=== PATIENT | female | born 1985 | race Caucasian/White ===

== ENCOUNTER → 2020-11-15 | Outpatient (CLI) | payer SELFPAY ==
[~2020-11-15] MED LIST: ALLERCLEAR10 MG PO; AUROVELA; CEFDINIR300 M4; ESCI10; EUTHYROX25 MC1; IRON18 MG; PRED20; TESTOSTERONE SL; TRAZ50; VIIBRYD1 EAC2 PO; Ventolin/Prove6.7 GM
[2020-11-15 11:40] LABS: Hematocrit 39.7 % (33.0-51.0); Hemoglobin 13.2 g/dL (11.5-16.0); Mean Corpuscular HGB 29.7 pg (26.0-34.0); Mean Corpuscular HGB Conc 33.2 g/dL (31.5-36.5); Mean Corpuscular Volume 89 fL (80-100); RDW Coefficient Variation 13.1 % (11.7-14.2); RDW Standard Deviation 42.7 fL (35.1-46.3); Red Blood Cell Count 4.45 M/mm3 (3.80-5.20); White Blood Cell Count 5.09 K/mm3 (4.00-11.30)
[2020-11-15 11:45] LABS: Calcium, Blood 8.3 mg/dL (8.5-10.1); Creatinine, Blood 1.09 mg/dL (0.40-1.00); Potassium, Blood 3.8 mmol/L (3.5-5.5)
[2020-11-15 12:27] LABS: Mean Platelet Volume 11.9 fL (9.1-12.4); Platelet Count 105 K/mm3 (150-400)
[2020-11-15 12:33] LABS: BAND PERCENT MAN 15 % (0-8); BASOPHILS PERCENT MAN 0 % (0-2); EOSINOPHILS PERCENT MAN 0 % (0-6); LYMPHOCYTES ABSOLUTE MAN 1.32 K/mm3 (0.84-5.20); LYMPHOCYTES PERCENT MAN 26 % (21-46); MONOCYTES ABSOLUTE MAN 0.25 K/mm3 (0.16-1.47); MONOCYTES PERCENT MAN 5 % (4-13); MYELOCYTE ABSOLUTE MAN 0.05 K/mm3 (0.00-0.00); MYELOCYTE PERCENT MAN 1 % (0-0); NEUTROPHILS ABSOLUTE MAN 3.46 K/mm3 (1.96-9.15); SEG NEUTROPHILS PERCENT MAN 53 % (41-73); TOTAL CELLS COUNTED 100
== END | disposition home or self-care (01) ==
LOC: LAB SHORT 11:36 → LAB 11:36
PROVIDERS: Family Medicine
DX: U07.1 COVID-19 (principal)
CPT/HCPCS: 80048; 85025

== ENCOUNTER 2020-11-16 19:53 | Inpatient (IN) | payer BC ==
[~2020-11-16] VITALS: Ht 162.6 cm; Wt 127.0 kg
[2020-11-16] MEDS ORDERED: Ventolin/Prove6.7 GM INH (20:25)
[2020-11-16] MEDS ORDERED: CEFDINIR300 M4 (20:26)
[2020-11-16] MEDS ORDERED: PRED20 (20:26)
[2020-11-16] MEDS ORDERED: TRAZ50 PO (20:29)
[2020-11-16] MEDS ORDERED: EUTHYROX25 MC1 PO (20:29)
[2020-11-16] MEDS ORDERED: AUROVELA PO (20:30)
[2020-11-16] MEDS ORDERED: ESCI10 (20:31)
[2020-11-16] MEDS ORDERED: VIIBRYD1 EAC2 PO (20:31)
[2020-11-16] MEDS ORDERED: IRON18 MG (20:32)
[2020-11-16] MEDS ORDERED: ALLERCLEAR10 MG PO (20:33)
[2020-11-16 21:47] LABS: BASOPHILS ABSOLUTE AUTO 0.02 K/mm3 (0.00-0.23); BASOPHILS PERCENT AUTO 0 % (0-2); EOSINOPHILS ABSOLUTE AUTO 0.01 K/mm3 (0.00-0.68); EOSINOPHILS PERCENT AUTO 0 % (0-6); Hematocrit 41.2 % (33.0-51.0); Hemoglobin 13.4 g/dL (11.5-16.0); IMMATURE GRAN ABSOLUTE AUTO 0.24 K/mm3 (0.00-0.10); IMMATURE GRAN PERCENT AUTO 3 % (0-1); LYMPHOCYTES ABSOLUTE AUTO 0.98 K/mm3 (0.84-5.20); LYMPHOCYTES PERCENT AUTO 12 % (21-46); MONOCYTES ABSOLUTE AUTO 0.33 K/mm3 (0.16-1.47); MONOCYTES PERCENT AUTO 4 % (4-13); Mean Corpuscular HGB 29.4 pg (26.0-34.0); Mean Corpuscular HGB Conc 32.5 g/dL (31.5-36.5); Mean Corpuscular Volume 90 fL (80-100); NEUTROPHILS ABSOLUTE AUTO 6.47 K/mm3 (1.96-9.15); NEUTROPHILS PERCENT AUTO 80 % (41-73); Platelet Count 161 K/mm3 (150-400); Red Blood Cell Count 4.56 M/mm3 (3.80-5.20); White Blood Cell Count 8.05 K/mm3 (4.00-11.30)
[2020-11-16 22:05] LABS: Alanine Aminotransfer (ALT/SGP 209 U/L (12-78); Albumin, Blood 3.3 g/dL (3.4-5.0); Alk Phos 86 U/L (50-136); Anion Gap 6 mmol/L (6-16); Aspartate Aminotrans (AST/SGOT 120 U/L (12-37); Bilirubin, Total 0.4 mg/dL (0.1-1.0); Blood Urea Nitrogen 8 mg/dL (8-24); Bun/Creatinine Ratio 14.2 (12.0-20.0); CO2, Blood 26 mmol/L (21-32); Calcium, Blood 8.6 mg/dL (8.5-10.1); Chloride, Blood 107 mmol/L (98-108); Creatinine, Blood 0.56 mg/dL (0.40-1.00); Globulin, Blood 3.4 g/dL (2.2-4.0); Glomerular Filtration Rate >60 (60-); Glucose, Blood 174 mg/dL (70-99); Potassium, Blood 4.6 mmol/L (3.5-5.5); Sodium, Blood 139 mmol/L (136-145); Total Protein, Blood 6.7 g/dL (6.4-8.2)
[2020-11-17 06:12] LABS: BASOPHILS ABSOLUTE AUTO 0.02 K/mm3 (0.00-0.23); BASOPHILS PERCENT AUTO 0 % (0-2); EOSINOPHILS PERCENT AUTO 0 % (0-6); Hematocrit 40.6 % (33.0-51.0); IMMATURE GRAN ABSOLUTE AUTO 0.33 K/mm3 (0.00-0.10); IMMATURE GRAN PERCENT AUTO 4 % (0-1); LYMPHOCYTES ABSOLUTE AUTO 1.24 K/mm3 (0.84-5.20); LYMPHOCYTES PERCENT AUTO 13 % (21-46); MONOCYTES ABSOLUTE AUTO 0.45 K/mm3 (0.16-1.47); MONOCYTES PERCENT AUTO 5 % (4-13); Mean Corpuscular HGB 28.8 pg (26.0-34.0); Mean Corpuscular Volume 90 fL (80-100); Mean Platelet Volume 11.8 fL (9.1-12.4); NEUTROPHILS ABSOLUTE AUTO 7.35 K/mm3 (1.96-9.15); NEUTROPHILS PERCENT AUTO 78 % (41-73); Platelet Count 170 K/mm3 (150-400); RDW Coefficient Variation 13.3 % (11.7-14.2); Red Blood Cell Count 4.52 M/mm3 (3.80-5.20); White Blood Cell Count 9.39 K/mm3 (4.00-11.30)
--- NOTE | 2020-11-17 06:13 | NUR ---
COMPUTER FORENSIC EXAMINER SUMMARY PT NEW ADMIT NOC SHIFT. A/O X4. MEDICATED FOR HEADACHE PER EMAR. MEDICATED FOR SLEEP PER EMAR. PT ARRIVED TO UNIT WITH 12L VIA OXYMYZER AND CONTINUES TO BE ON 12L VIA OXYMIZER SATTING IN THE LOW 90'S. ABLE TO MAKE NEEDS KNOWN. CALL LIGHT WITHIN REACH, WILL CONTINUE TO MONITOR.
[2020-11-17 06:33] LABS: Alanine Aminotransfer (ALT/SGP 186 U/L (12-78); Albumin, Blood 3.2 g/dL (3.4-5.0); Alk Phos 84 U/L (50-136); Anion Gap 8 mmol/L (6-16); Aspartate Aminotrans (AST/SGOT 102 U/L (12-37); Bilirubin, Total 0.4 mg/dL (0.1-1.0); Blood Urea Nitrogen 10 mg/dL (8-24); Bun/Creatinine Ratio 15.7 (12.0-20.0); CO2, Blood 26 mmol/L (21-32); Calcium, Blood 8.1 mg/dL (8.5-10.1); Chloride, Blood 107 mmol/L (98-108); Creatinine, Blood 0.64 mg/dL (0.40-1.00); Globulin, Blood 3.2 g/dL (2.2-4.0); Glomerular Filtration Rate >60 (60-); Glucose, Blood 163 mg/dL (70-99); Potassium, Blood 4.2 mmol/L (3.5-5.5); Sodium, Blood 141 mmol/L (136-145); Total Protein, Blood 6.4 g/dL (6.4-8.2)
[2020-11-17] MEDS ORDERED: TESTOSTERONE SL (08:57)
--- NOTE | 2020-11-17 18:40 | NUR ---
SHIFT SUMMARY PT NOW ON 15 L/MIN OXYMIZER SATING IN THE 90'S. PT REPORTS MORE RELIEF WHEN LYING IN PRONE POSITION. DIARRHEA CONTINUES, IMODIUM PROVIDED PER ORDERS. PAIN MEDS GIVEN PRN FOR HEADACHE. UPDATED, WOULD LIKE A PHONE CALL FROM HOSPITALIST FOR UPDATE. NUMBER IS . PT CALLS APPROPRAITELY, CALL LIGHT WITHIN REACH.
--- NOTE | 2020-11-17 19:20 | NUR ---
ASSUMED CARE RECEIVED REPORT FROM TAMARA ESPINOZA. PT RESTING, IN NAD. NO ACUTE NEEDS ASSESSED AT THIS TIME. CALL LIGHT, POSSESSIONS IN REACH, BED IN LOW AND LOCKED POSITION. OLI.
[2020-11-18 06:13] LABS: BASOPHILS ABSOLUTE AUTO 0.04 K/mm3 (0.00-0.23); BASOPHILS PERCENT AUTO 1 % (0-2); EOSINOPHILS ABSOLUTE AUTO 0.01 K/mm3 (0.00-0.68); EOSINOPHILS PERCENT AUTO 0 % (0-6); Hematocrit 43.3 % (33.0-51.0); Hemoglobin 13.6 g/dL (11.5-16.0); IMMATURE GRAN ABSOLUTE AUTO 0.32 K/mm3 (0.00-0.10); IMMATURE GRAN PERCENT AUTO 4 % (0-1); LYMPHOCYTES ABSOLUTE AUTO 2.13 K/mm3 (0.84-5.20); LYMPHOCYTES PERCENT AUTO 26 % (21-46); MONOCYTES ABSOLUTE AUTO 0.41 K/mm3 (0.16-1.47); MONOCYTES PERCENT AUTO 5 % (4-13); Mean Corpuscular HGB 28.9 pg (26.0-34.0); Mean Corpuscular HGB Conc 31.4 g/dL (31.5-36.5); Mean Corpuscular Volume 92 fL (80-100); Mean Platelet Volume 11.6 fL (9.1-12.4); NEUTROPHILS ABSOLUTE AUTO 5.23 K/mm3 (1.96-9.15); NEUTROPHILS PERCENT AUTO 64 % (41-73); Platelet Count 206 K/mm3 (150-400); RDW Coefficient Variation 13.5 % (11.7-14.2); RDW Standard Deviation 46.5 fL (35.1-46.3); Red Blood Cell Count 4.71 M/mm3 (3.80-5.20); White Blood Cell Count 8.14 K/mm3 (4.00-11.30)
[2020-11-18 06:51] LABS: Alanine Aminotransfer (ALT/SGP 140 U/L (12-78); Albumin, Blood 3.1 g/dL (3.4-5.0); Albumin/Globulin Ratio 0.9 (0.8-1.8); Alk Phos 81 U/L (50-136); Anion Gap 6 mmol/L (6-16); Aspartate Aminotrans (AST/SGOT 83 U/L (12-37); Bilirubin, Total 0.5 mg/dL (0.1-1.0); Blood Urea Nitrogen 14 mg/dL (8-24); Bun/Creatinine Ratio 18.7 (12.0-20.0); CO2, Blood 29 mmol/L (21-32); Calcium, Blood 8.3 mg/dL (8.5-10.1); Chloride, Blood 104 mmol/L (98-108); Creatinine, Blood 0.75 mg/dL (0.40-1.00); Globulin, Blood 3.6 g/dL (2.2-4.0); Glomerular Filtration Rate >60 (60-); Glucose, Blood 98 mg/dL (70-99); Magnesium, Blood 2.1 mg/dL (1.6-2.4); Phosphorus, Blood 3.2 mg/dL (2.5-4.9); Sodium, Blood 139 mmol/L (136-145); Total Protein, Blood 6.7 g/dL (6.4-8.2)
[2020-11-18 07:02] LABS: International Normalized Ratio 0.94; Prothrombin Time Results 10.2 Sec (9.7-11.5)
--- NOTE | 2020-11-18 07:44 | NUR ---
SHIFT SUMMARY PT RESTING, IN NAD. VS REVIEWED, WNL. ON 15L/OXYMIZER, O2 SATS IN HIGH 80'S- LOW 90'S. APPEARED TO SLEEP ON AND OFF T/O NIGHT. SELF-PRONES, TOLERATES WELL. PAIN MANAGED WITH MEDS PER EMAR. NO ACUTE NEEDS ASSESSED AT THIS TIME. CALL LIGHT, POSSESSIONS IN REACH, BED IN LOCKED POSITION. REPORT GIVEN TO TAMARA MARCUM.
--- NOTE | 2020-11-18 08:00 | NUR ---
PT OXYIMIZER CHANGED TO HI FLOW CANULA AND NRB AT 15L
--- NOTE | 2020-11-18 18:46 | NUR ---
PT CHANGED TO HI FLOW CANULA AND NRB MASK TO MAINTAIN SATS. SHE DOES SELF PRONE. PT REPORTS ANXIETY THIS AFTERNOON, 1 MG PO ATIVAN GIVEN AT [id number]. PT THEN REPORTS PAIN TO HEAD AND BACK, 1 PO NORCO GIVEN AT 181. WILL MONITOR FOR EFFECTIVENESS. WILL CONTINUE TO MONITOR AND REPORT TO ONCOMING RN
--- NOTE | 2020-11-18 19:15 | NUR ---
ASSUMED CARE RECEIVED REPORT FROM TAMARA MARCUM. PT RESTING, IN NAD. NO ACUTE NEEDS ASSESSED. CALL LIGHT, POSSESSIONS IN REACH.
--- NOTE | 2020-11-18 22:40 | NUR ---
VERBAL CONSENT OBTAINED FROM PT TO UPDATE MOTHER ON PT CONDITION. SPOKE TO PT'S MOTHER REGARDING PT'S CURRENT OXYGENATION STATUS, MEDICATIONS AND PLAN OF CARE. ALLOWED FOR QUESTIONS, ADDRESSED CONCERNS AND PROVIDED REASSURANCE. FAMILY TO CALL FOR UPDATE TOMORROW MORNING.
--- NOTE | 2020-11-19 06:13 | NUR ---
SHIFT SUMMARY PT RESTING, IN NAD. VS REVIEWED,WNL; O2 SATS 93-95% ON AIRVO WITH NRB. PT SELF-PRONING AND TOLERATING WELL. APPEARED TO SLEEP WELL OVERNIGHT. NO OTHER ACUTE CONCERNS TO REPORT OVERNIGHT. NO ACUTE NEEDS ASSESSED AT THIS TIME. CALL LIGHT, POSSESSIONS IN REACH, BED IN LOW AND LOCKED POSITION. WILL REPORT OFF TO ONCOMING RN.
--- NOTE | 2020-11-19 19:10 | NUR ---
ASSUMED CARE RECEIVED REPORT FROM TAMARA MARCUM. PT RESTING, IN NAD; O2 SATS STABLE. NO ACUTE NEEDS ASSESSED AT THIS TIME. CALL LIGHT, POSSESSIONS IN REACH. WCTM.
[2020-11-20 05:19] LABS: Hematocrit 37.9 % (33.0-51.0); Hemoglobin 12.2 g/dL (11.5-16.0); Mean Corpuscular HGB 28.6 pg (26.0-34.0); Mean Corpuscular HGB Conc 32.2 g/dL (31.5-36.5); Mean Corpuscular Volume 89 fL (80-100); Mean Platelet Volume 10.9 fL (9.1-12.4); Platelet Count 226 K/mm3 (150-400); RDW Coefficient Variation 12.9 % (11.7-14.2); Red Blood Cell Count 4.27 M/mm3 (3.80-5.20); White Blood Cell Count 7.17 K/mm3 (4.00-11.30)
[2020-11-20 05:46] LABS: Anion Gap 8 mmol/L (6-16); Blood Urea Nitrogen 11 mg/dL (8-24); Bun/Creatinine Ratio 18.9 (12.0-20.0); CO2, Blood 25 mmol/L (21-32); Calcium, Blood 7.8 mg/dL (8.5-10.1); Chloride, Blood 107 mmol/L (98-108); Creatinine, Blood 0.58 mg/dL (0.40-1.00); Glomerular Filtration Rate >60 (60-); Glucose, Blood 126 mg/dL (70-99); Potassium, Blood 3.8 mmol/L (3.5-5.5); Sodium, Blood 140 mmol/L (136-145)
[2020-11-20 05:56] LABS: BAND PERCENT MAN 5 % (0-8); BASOPHILS PERCENT MAN 0 % (0-2); EOSINOPHILS PERCENT MAN 0 % (0-6); LYMPHOCYTES ABSOLUTE MAN 1.14 K/mm3 (0.84-5.20); LYMPHOCYTES PERCENT MAN 16 % (21-46); METAMYELOCYTE ABSOLUTE MAN 0.07 K/mm3 (0.00-0.00); METAMYELOCYTE PERCENT MAN 1 % (0-0); MONOCYTES ABSOLUTE MAN 0.28 K/mm3 (0.16-1.47); MONOCYTES PERCENT MAN 4 % (4-13); NEUTROPHILS ABSOLUTE MAN 5.66 K/mm3 (1.96-9.15); SEG NEUTROPHILS PERCENT MAN 74 % (41-73); TOTAL CELLS COUNTED 100
--- NOTE | 2020-11-20 06:40 | NUR ---
SHIFT SUMMARY PT ASLEEP IN PRONE POSITION, IN NAD. NO ACUTE CONCERNS TO REPORT OVERNIGHT. O2 SATS 92 OR ABOVE ON AIRVO + NRB; HAS BEEN HIGH 97% T/O SHIFT. NO ACUTE NEEDS ASSESSED AT THIS TIME. CALL LIGHT, POSSESSIONS IN REACH, BED IN LOWEST POSITION. PT SELF PRONES WELL. WILL REPORT OFF TO ONCOMING RN.
--- NOTE | 2020-11-20 12:48 | NUR ---
TP PLEASANT THIS AM. LIES PRONE REGULARLY. LUNGS LITE CRACKLES T/O SOB WITH ANY EXERTION. ON AIRVE 50L 85% FIO2. RESP UNLABORED. PT A/O. DENIES PAIN AT THIS TIME. BED IN LOW POSITION, CALL LITE IN REACH, CALLS AP[PROP
--- NOTE | 2020-11-20 13:52 | NUR ---
UPDATED MOM WITH CURRENT INFO. PT ON AIRVO 50L 85% FIO2 PLUS NONREBREATHER, PT LIES PRONE AND THIS HELPS. SHE NOT UNDERSTANDING PT STATUS. EXPLAINED APPERAS HOLDING OWN NOW, BUT IS QUITE SICK.
--- NOTE | 2020-11-20 18:39 | NUR ---
PT HAS BEEN PRONE MUCH OF DAY. NO C/O PAIN. AIRVO AT 50L 85% FIO2. WITH NONREBREATHER BULK CLERK. PRESENTS TIRED. NO NEW CONCERNS NOTED. EATING MINIMAL. ENCOURAGED ENSUR. BED IN LOW P OSITION, CALL LITE IN REACH, CALLS APPROP
--- NOTE | 2020-11-21 04:53 | NUR ---
SHIFT SUMMARY PT IS A FULL CODE ADMITTED FOR HYPOXIA D/T COVID 19+. THE PLAN FOR THIS PT IS TO DECREASE 02 DEMANDS AND CONTINUE ANTIBIOTICS. NO DISTRESS NOTED. PT RESTING IN BED. VS STABLE.
[2020-11-21 05:13] LABS: Hematocrit 37.9 % (33.0-51.0); Hemoglobin 12.6 g/dL (11.5-16.0); Mean Corpuscular HGB 29.1 pg (26.0-34.0); Mean Corpuscular HGB Conc 33.2 g/dL (31.5-36.5); Mean Corpuscular Volume 88 fL (80-100); Mean Platelet Volume 11.8 fL (9.1-12.4); Platelet Count 256 K/mm3 (150-400); RDW Coefficient Variation 12.5 % (11.7-14.2); RDW Standard Deviation 40.3 fL (35.1-46.3); Red Blood Cell Count 4.33 M/mm3 (3.80-5.20); White Blood Cell Count 7.41 K/mm3 (4.00-11.30)
[2020-11-21 05:42] LABS: Alanine Aminotransfer (ALT/SGP 121 U/L (12-78); Albumin, Blood 2.6 g/dL (3.4-5.0); Albumin/Globulin Ratio 0.8 (0.8-1.8); Alk Phos 79 U/L (50-136); Anion Gap 7 mmol/L (6-16); Aspartate Aminotrans (AST/SGOT 80 U/L (12-37); Bilirubin, Total 0.7 mg/dL (0.1-1.0); Blood Urea Nitrogen 13 mg/dL (8-24); Bun/Creatinine Ratio 25.5 (12.0-20.0); CO2, Blood 26 mmol/L (21-32); Calcium, Blood 8.1 mg/dL (8.5-10.1); Chloride, Blood 106 mmol/L (98-108); Creatinine, Blood 0.51 mg/dL (0.40-1.00); Globulin, Blood 3.4 g/dL (2.2-4.0); Glomerular Filtration Rate >60 (60-); Glucose, Blood 146 mg/dL (70-99); Potassium, Blood 3.8 mmol/L (3.5-5.5); Sodium, Blood 139 mmol/L (136-145)
[2020-11-21 06:04] LABS: BAND PERCENT MAN 5 % (0-8); BASOPHILS PERCENT MAN 0 % (0-2); EOSINOPHILS PERCENT MAN 0 % (0-6); LYMPHOCYTES ABSOLUTE MAN 1.18 K/mm3 (0.84-5.20); LYMPHOCYTES PERCENT MAN 16 % (21-46); METAMYELOCYTE ABSOLUTE MAN 0.07 K/mm3 (0.00-0.00); METAMYELOCYTE PERCENT MAN 1 % (0-0); MONOCYTES ABSOLUTE MAN 0.14 K/mm3 (0.16-1.47); MONOCYTES PERCENT MAN 2 % (4-13); MYELOCYTE ABSOLUTE MAN 0.29 K/mm3 (0.00-0.00); MYELOCYTE PERCENT MAN 4 % (0-0); SEG NEUTROPHILS PERCENT MAN 72 % (41-73); TOTAL CELLS COUNTED 100
--- NOTE | 2020-11-21 09:44 | NUR ---
PER DR MORAN, CHANGE LOVENOX TO 40MG BID STATR NOW.
--- NOTE | 2020-11-21 13:16 | NUR ---
PT QUITE PLEASANT TODAY. IS PRESENTLY PRONE ON BED. USING AIRVE AT 50L 85% FIIO2. PLUS THE NON-REBREATHER. PT ABLE TO SIT UP AND TAKE PILLS 1-2 AT A TIME. REPLACING NON-REBEATHER BETWEEN PILLS AND SWALLOWING. DID DESAT DOWN TO MID 80'S, WHICH IS SOME BETTER THAN YEST. DID GO TO BSC AND VOID, AGAIN SOME SMALL IMPROVEMENT IN SATS. NOSE BLEEDS, DRIED BLOOD ON FACE, AND ON NON-REBREAATHER. DISCUSSED WITH DR MORAN. HE CHANGED LOVENOX TO LOWER DOSE. CLEANED PT FACE AND MASK. NO NEW CONCERNS NOTED. BED IN LOW POSITION, CAALL LITE IN REACH, CALLS APPROP
[2020-11-22 05:28] LABS: BASOPHILS ABSOLUTE AUTO 0.08 K/mm3 (0.00-0.23); BASOPHILS PERCENT AUTO 1 % (0-2); Hematocrit 40.1 % (33.0-51.0); Hemoglobin 13.3 g/dL (11.5-16.0); LYMPHOCYTES ABSOLUTE AUTO 1.31 K/mm3 (0.84-5.20); LYMPHOCYTES PERCENT AUTO 16 % (21-46); MONOCYTES ABSOLUTE AUTO 0.67 K/mm3 (0.16-1.47); MONOCYTES PERCENT AUTO 8 % (4-13); Mean Corpuscular HGB Conc 33.2 g/dL (31.5-36.5); Mean Corpuscular Volume 88 fL (80-100); Mean Platelet Volume 11.7 fL (9.1-12.4); Platelet Count 269 K/mm3 (150-400); RDW Coefficient Variation 12.6 % (11.7-14.2); RDW Standard Deviation 40.6 fL (35.1-46.3); Red Blood Cell Count 4.58 M/mm3 (3.80-5.20); White Blood Cell Count 8.47 K/mm3 (4.00-11.30)
--- NOTE | 2020-11-22 05:28 | NUR ---
SHIFT SUMMARY PT IS A FULL CODE ADMITTED FOR COVID 19+. THE PLAN FOR THIS PT IS TO CONTINUE IN STEROIDS AND TO DECREASE 02 DEMANDS. PT IS CURRENTLY ON AIRVO 50L 85% WITH NONREBREATHER @ 15L. PT SATS HAS BEEN IN THE 90S THROUGHOUT SHIFT. SATS WILL DROP WITH ACTIVITY. NO SIGNIFICANT CHANGES THROUGHTOUT THIS SHIFT.
[2020-11-22 05:29] LABS: EOSINOPHILS PERCENT AUTO 0 % (0-6); IMMATURE GRAN PERCENT AUTO 12 % (0-1); NEUTROPHILS ABSOLUTE AUTO 5.41 K/mm3 (1.96-9.15); NEUTROPHILS PERCENT AUTO 64 % (41-73)
[2020-11-22 05:54] LABS: Alanine Aminotransfer (ALT/SGP 108 U/L (12-78); Albumin, Blood 2.7 g/dL (3.4-5.0); Albumin/Globulin Ratio 0.7 (0.8-1.8); Alk Phos 79 U/L (50-136); Anion Gap 6 mmol/L (6-16); Aspartate Aminotrans (AST/SGOT 51 U/L (12-37); Bilirubin, Total 0.6 mg/dL (0.1-1.0); Blood Urea Nitrogen 15 mg/dL (8-24); CO2, Blood 27 mmol/L (21-32); Calcium, Blood 8.8 mg/dL (8.5-10.1); Chloride, Blood 105 mmol/L (98-108); Creatinine, Blood 0.54 mg/dL (0.40-1.00); Globulin, Blood 3.7 g/dL (2.2-4.0); Glomerular Filtration Rate >60 (60-); Glucose, Blood 152 mg/dL (70-99); Potassium, Blood 3.9 mmol/L (3.5-5.5); Sodium, Blood 138 mmol/L (136-145); Total Protein, Blood 6.4 g/dL (6.4-8.2)
[2020-11-22 06:09] LABS: BAND PERCENT MAN 4 % (0-8); BASOPHILS PERCENT MAN 0 % (0-2); EOSINOPHILS PERCENT MAN 0 % (0-6); LYMPHOCYTES ABSOLUTE MAN 1.01 K/mm3 (0.84-5.20); LYMPHOCYTES PERCENT MAN 12 % (21-46); METAMYELOCYTE PERCENT MAN 6 % (0-0); MONOCYTES ABSOLUTE MAN 0.84 K/mm3 (0.16-1.47); MONOCYTES PERCENT MAN 10 % (4-13); NEUTROPHILS ABSOLUTE MAN 6.09 K/mm3 (1.96-9.15); SEG NEUTROPHILS PERCENT MAN 68 % (41-73); TOTAL CELLS COUNTED 100
--- NOTE | 2020-11-22 08:27 | NUR ---
PATIENT PRONING, MAKES NEEDS KNOWN, WOKE EASILY TO VOICE AND TOUCH, SITTING AT EDGE OF BED FOR MEDICATION, CALL LIGHT WITH IN REACH, WCTM
--- NOTE | 2020-11-22 08:28 | NUR ---
PATIENT EASILY DESATS TO 70%'S WHEN TAKING PILLS RECOVERS QUICKLY TO 91%, NONREBREATHER 100%, AND AEROVO
--- NOTE | 2020-11-22 11:37 | NUR ---
REPORTED TO PATIENTS MOTHER ANDREE, PATIENT MAKES NEEDS KNOWN, REPOSITIONS SELF IN BED, PRONES INDEPEDENTLY, WCTM
--- NOTE | 2020-11-22 12:40 | NUR ---
PATIENT OOB TO BSC, STEADY SLOW GAIT, WCTM
--- NOTE | 2020-11-22 14:03 | NUR ---
Patient is sitting on EOB and alert. Patient talks about the struggles of working through the syptoms of the COVID virus both physically and emotionally (patient has felt quite anxious at times). She tells me about her 's hernandez with COVID and how hard it is to be seperated from family. She explains about her [employer] jalil, her solid support system and her strong desire to work through to total health. I provide therapeutic listening, pastoral diet counselor and prayer. Patient responds well and displays evidence of increased peace. I will continue to remain available to patient and family.
--- NOTE | 2020-11-22 18:33 | NUR ---
MAKES NEEDS KNOWN, CALL LIGHT WITH IN REACH, PATIENT REPORTS FEELING BETTER TODAY, REPOSITIONS SELF, LS DIMINISHED, 15 L NONREBREATHER, AIRVO 50L 85%, POOR APPETITE, PATIENT TRYING TO EAT FOOD NOW, PLEASANT TO CARE, WCTM
--- NOTE | 2020-11-23 04:40 | NUR ---
SHIFT SUMMARY FULL CODE PT ADMITTED FOR COVID 19+. THE PLAN FOR THIS PT IS TO DECREASE 02 DEMANDS AND CONTINUE IV STERIODS. PT RESTING AT THUS TIME. NO DISTRESS NOTED. PT REMAINS ON AIRVO. SATS RANGES FROM 90-97 THROUGHOUT SHIFT. PT WILL DESAT MTO 85 WITH ACTIVITY. CALL LIGHT WITHIN REACH.
[2020-11-23 05:48] LABS: Hematocrit 41.5 % (33.0-51.0); Hemoglobin 13.7 g/dL (11.5-16.0); Mean Corpuscular Volume 88 fL (80-100); Mean Platelet Volume 11.7 fL (9.1-12.4); Platelet Count 273 K/mm3 (150-400); RDW Coefficient Variation 12.7 % (11.7-14.2); RDW Standard Deviation 40.6 fL (35.1-46.3); Red Blood Cell Count 4.72 M/mm3 (3.80-5.20); White Blood Cell Count 10.53 K/mm3 (4.00-11.30)
[2020-11-23 06:16] LABS: BAND PERCENT MAN 11 % (0-8); BASOPHILS PERCENT MAN 0 % (0-2); EOSINOPHILS PERCENT MAN 0 % (0-6); LYMPHOCYTES % ATYPICAL MANUAL 1 % (0-0); LYMPHOCYTES ABSOLUTE MAN 1.47 K/mm3 (0.84-5.20); LYMPHOCYTES PERCENT MAN 13 % (21-46); MONOCYTES ABSOLUTE MAN 0.31 K/mm3 (0.16-1.47); MONOCYTES PERCENT MAN 3 % (4-13); MYELOCYTE ABSOLUTE MAN 0.21 K/mm3 (0.00-0.00); MYELOCYTE PERCENT MAN 2 % (0-0); NEUTROPHILS ABSOLUTE MAN 8.52 K/mm3 (1.96-9.15); SEG NEUTROPHILS PERCENT MAN 70 % (41-73); TOTAL CELLS COUNTED 100
[2020-11-23 06:48] LABS: Alanine Aminotransfer (ALT/SGP 103 U/L (12-78); Albumin, Blood 2.8 g/dL (3.4-5.0); Albumin/Globulin Ratio 0.8 (0.8-1.8); Alk Phos 77 U/L (50-136); Anion Gap 5 mmol/L (6-16); Aspartate Aminotrans (AST/SGOT 57 U/L (12-37); Bilirubin, Total 0.5 mg/dL (0.1-1.0); Blood Urea Nitrogen 15 mg/dL (8-24); Bun/Creatinine Ratio 24.5 (12.0-20.0); CO2, Blood 29 mmol/L (21-32); Calcium, Blood 8.5 mg/dL (8.5-10.1); Chloride, Blood 105 mmol/L (98-108); Creatinine, Blood 0.61 mg/dL (0.40-1.00); Globulin, Blood 3.5 g/dL (2.2-4.0); Glomerular Filtration Rate >60 (60-); Glucose, Blood 166 mg/dL (70-99); Potassium, Blood 4.3 mmol/L (3.5-5.5); Sodium, Blood 139 mmol/L (136-145); Total Protein, Blood 6.3 g/dL (6.4-8.2)
--- NOTE | 2020-11-23 18:58 | NUR ---
MAKES NEEDS KNOWN, CALL LIGHT WITH IN REACH, NO CHANGES, IMPROVED O2 SATS, ATE DINNER TRAY AIRVO MASL ON. 92%, INSPIRATORY WHEEZES THROUGH OUT LUNG FIELD, DENIES NAUSEA OR CP, WCTM
--- NOTE | 2020-11-24 04:15 | NUR ---
SHIFT SUMMARY PT ADMITTED FOR COVID 19+. ON AIRVO SATTING 90-97% THROUGHOUT SHIFT. NO DISTRESS NOTED. VS STABLE. NO SIGNIFICANT CAHNGES DURING THIS SHIFT. PT ABLE TO MAKE NEEDS KNOWN. AAOX3, CALL LIGHT WITHIN REACH.
[2020-11-24 05:28] LABS: Hematocrit 40.6 % (33.0-51.0); Hemoglobin 13.3 g/dL (11.5-16.0); Mean Corpuscular HGB 28.8 pg (26.0-34.0); Mean Corpuscular HGB Conc 32.8 g/dL (31.5-36.5); Mean Corpuscular Volume 88 fL (80-100); Mean Platelet Volume 11.8 fL (9.1-12.4); Platelet Count 290 K/mm3 (150-400); RDW Coefficient Variation 12.7 % (11.7-14.2); RDW Standard Deviation 40.8 fL (35.1-46.3); Red Blood Cell Count 4.62 M/mm3 (3.80-5.20); White Blood Cell Count 12.69 K/mm3 (4.00-11.30)
[2020-11-24 05:58] LABS: Alanine Aminotransfer (ALT/SGP 88 U/L (12-78); Albumin, Blood 2.8 g/dL (3.4-5.0); Albumin/Globulin Ratio 0.8 (0.8-1.8); Alk Phos 79 U/L (50-136); Anion Gap 4 mmol/L (6-16); Aspartate Aminotrans (AST/SGOT 30 U/L (12-37); Bilirubin, Total 0.7 mg/dL (0.1-1.0); Blood Urea Nitrogen 15 mg/dL (8-24); Bun/Creatinine Ratio 23.8 (12.0-20.0); CO2, Blood 29 mmol/L (21-32); Calcium, Blood 8.9 mg/dL (8.5-10.1); Chloride, Blood 105 mmol/L (98-108); Creatinine, Blood 0.63 mg/dL (0.40-1.00); Globulin, Blood 3.6 g/dL (2.2-4.0); Glomerular Filtration Rate >60 (60-); Glucose, Blood 168 mg/dL (70-99); Sodium, Blood 138 mmol/L (136-145); Total Protein, Blood 6.4 g/dL (6.4-8.2)
[2020-11-24 06:13] LABS: BAND PERCENT MAN 7 % (0-8); BASOPHILS PERCENT MAN 0 % (0-2); EOSINOPHILS PERCENT MAN 0 % (0-6); LYMPHOCYTES ABSOLUTE MAN 0.63 K/mm3 (0.84-5.20); LYMPHOCYTES PERCENT MAN 5 % (21-46); METAMYELOCYTE ABSOLUTE MAN 0.12 K/mm3 (0.00-0.00); METAMYELOCYTE PERCENT MAN 1 % (0-0); MONOCYTES ABSOLUTE MAN 0.12 K/mm3 (0.16-1.47); MONOCYTES PERCENT MAN 1 % (4-13); MYELOCYTE PERCENT MAN 4 % (0-0); NEUTROPHILS ABSOLUTE MAN 11.29 K/mm3 (1.96-9.15); SEG NEUTROPHILS PERCENT MAN 82 % (41-73); TOTAL CELLS COUNTED 100
[2020-11-24 15:50] LABS: Source, Urine Clean Catch
[2020-11-24 15:57] LABS: Appearance, Urine Clear (Clear); Bilirubin, Urine Neg (Neg); Blood, Urine Neg (Neg); Color, Urine Yellow (P-Yellow); Glucose Qualitative, Urine Neg (Neg); Ketones, Urine Neg (Neg); Leukocyte Esterase, Urine Neg (Neg); Nitrite, Urine Neg (Neg); Protein, Urine Neg (Neg); Urobilinogen, Urine NORM (Normal); pH, Urine 6.5 (5.0-8.0)
--- NOTE | 2020-11-25 04:33 | NUR ---
SHIFT SUMMARY- PT. A&O, PLEASANT AND COOPERATIVE [facility]. ON AIRVO 45L @85% SATS MAINTAINED @95%. HAD NO COMPLAINTS OF PAIN OR DISCOMFORT T/O THE NIGHT. SLEPT T/O THE NIGHT, NO APPARENT DISTRESS NOTED. CALL LIGHT WITHIN REACH AND SIDE RAILS UPX2. WILL CONT TO MONITOR.
[2020-11-25 14:07] LABS: Hematocrit 40.6 % (33.0-51.0); Hemoglobin 13.3 g/dL (11.5-16.0); Mean Corpuscular HGB 29.1 pg (26.0-34.0); Mean Corpuscular HGB Conc 32.8 g/dL (31.5-36.5); Mean Corpuscular Volume 89 fL (80-100); Mean Platelet Volume 11.7 fL (9.1-12.4); Platelet Count 249 K/mm3 (150-400); RDW Coefficient Variation 12.8 % (11.7-14.2); RDW Standard Deviation 41.6 fL (35.1-46.3); Red Blood Cell Count 4.57 M/mm3 (3.80-5.20); White Blood Cell Count 13.05 K/mm3 (4.00-11.30)
[2020-11-25 14:19] LABS: Anion Gap 3 mmol/L (6-16); Blood Urea Nitrogen 12 mg/dL (8-24); Bun/Creatinine Ratio 21.1 (12.0-20.0); CO2, Blood 29 mmol/L (21-32); Calcium, Blood 9.1 mg/dL (8.5-10.1); Chloride, Blood 108 mmol/L (98-108); Creatinine, Blood 0.57 mg/dL (0.40-1.00); Glomerular Filtration Rate >60 (60-); Glucose, Blood 154 mg/dL (70-99); Potassium, Blood 4.3 mmol/L (3.5-5.5); Sodium, Blood 140 mmol/L (136-145)
[2020-11-25 14:45] LABS: BAND PERCENT MAN 2 % (0-8); BASOPHILS PERCENT MAN 0 % (0-2); EOSINOPHILS PERCENT MAN 0 % (0-6); LYMPHOCYTES % ATYPICAL MANUAL 1 % (0-0); LYMPHOCYTES ABSOLUTE MAN 1.56 K/mm3 (0.84-5.20); LYMPHOCYTES PERCENT MAN 11 % (21-46); METAMYELOCYTE ABSOLUTE MAN 0.52 K/mm3 (0.00-0.00); METAMYELOCYTE PERCENT MAN 4 % (0-0); MONOCYTES ABSOLUTE MAN 0.52 K/mm3 (0.16-1.47); MONOCYTES PERCENT MAN 4 % (4-13); MYELOCYTE ABSOLUTE MAN 0.13 K/mm3 (0.00-0.00); MYELOCYTE PERCENT MAN 1 % (0-0); SEG NEUTROPHILS PERCENT MAN 77 % (41-73); TOTAL CELLS COUNTED 100
--- NOTE | 2020-11-25 17:52 | NUR ---
SHIFT SUMMARY PATIENT ALERT AND ORIENTED THIS SHIFT. PATIENT IS INDEPENDENT TO THE BEDSIDE COMODE. NO ACUTE CHANGES THIS SHIFT. PATIENT REMAINS ON AIRVO 50L @ 88% FIO2. PATIENT DENIES FEELING SOB. O2 SATS IN THE LOW 90S THROUGHOUT THIS SHIFT. PATIENT DENIES NEEDS THROUGHOUT THIS SHIFT. PATIENT CURRENTLY LYING IN BED RECEIVING A NEW IV DUE TO PREVIOUS IV LEAKING.
--- NOTE | 2020-11-26 04:16 | NUR ---
SHIFT SUMMARY- NO ACUTE EVENTS OVERNIGHT. PT. REMAINS ON AIRVO 50L @88% SATS MAINTAINED IN THE 90'S. NO COMPLAINTS DURING THE NIGHT. SLEPT T/O THE NIGHT, NO APPARENT DISTRESS NOTED. VSS. CALL LIGHT WITHIN REACH AND SIDE RAILS UPX2. WILL CONT TO MONITOR.
[2020-11-26 05:28] LABS: Hematocrit 38.2 % (33.0-51.0); Hemoglobin 12.6 g/dL (11.5-16.0); Mean Corpuscular HGB 29.6 pg (26.0-34.0); Mean Corpuscular Volume 90 fL (80-100); Mean Platelet Volume 11.8 fL (9.1-12.4); Platelet Count 220 K/mm3 (150-400); RDW Coefficient Variation 12.8 % (11.7-14.2); RDW Standard Deviation 41.9 fL (35.1-46.3); Red Blood Cell Count 4.25 M/mm3 (3.80-5.20); White Blood Cell Count 12.43 K/mm3 (4.00-11.30)
[2020-11-26 05:54] LABS: Anion Gap 4 mmol/L (6-16); Blood Urea Nitrogen 12 mg/dL (8-24); Bun/Creatinine Ratio 20.4 (12.0-20.0); CO2, Blood 27 mmol/L (21-32); Calcium, Blood 8.4 mg/dL (8.5-10.1); Chloride, Blood 107 mmol/L (98-108); Creatinine, Blood 0.59 mg/dL (0.40-1.00); Glomerular Filtration Rate >60 (60-); Glucose, Blood 151 mg/dL (70-99); Potassium, Blood 4.2 mmol/L (3.5-5.5); Sodium, Blood 138 mmol/L (136-145)
[2020-11-26 06:04] LABS: BAND PERCENT MAN 4 % (0-8); BASOPHILS PERCENT MAN 0 % (0-2); EOSINOPHILS PERCENT MAN 0 % (0-6); LYMPHOCYTES ABSOLUTE MAN 0.74 K/mm3 (0.84-5.20); LYMPHOCYTES PERCENT MAN 6 % (21-46); METAMYELOCYTE ABSOLUTE MAN 0.24 K/mm3 (0.00-0.00); METAMYELOCYTE PERCENT MAN 2 % (0-0); MONOCYTES ABSOLUTE MAN 1.24 K/mm3 (0.16-1.47); MONOCYTES PERCENT MAN 10 % (4-13); MYELOCYTE ABSOLUTE MAN 0.49 K/mm3 (0.00-0.00); MYELOCYTE PERCENT MAN 4 % (0-0); NEUTROPHILS ABSOLUTE MAN 9.69 K/mm3 (1.96-9.15); SEG NEUTROPHILS PERCENT MAN 74 % (41-73); TOTAL CELLS COUNTED 100
--- NOTE | 2020-11-26 17:13 | NUR ---
SHIFT SUMMARY PATIENT ALERT AND ORIENTED THROUGHOUT THIS SHIFT. PATIENT UP INDEPENDENTLY TO THE BEDSIDE COMODE. PATIENT REDUCED TO 50L @ 60% ON AIRVO THIS AFTERNOON, BY RT. PATIENT CALM AND COMPLIANT WITH CARE THROUGHOUT THIS SHIFT. NO ACUTE CHANGES THIS SHIFT. PATIENT CURRENTLY UP IN BED.
--- NOTE | 2020-11-27 06:11 | NUR ---
SHIFT SUMMARY- NO ACUTE EVENTS OVERNIGHT. PT. APPEARED TO HAVE A RESTFUL NIGHT, HAD NO COMPLAINTS OF PAIN OR DISCOMFORT T/O THE NIGHT. ON AIRVO 50L @60% SATS MAINTAINED IN THE 90'S. CALL LIGHT WITHIN REACH AND SIDE RAILS UPX2. WILL CONT TO MONITOR.
[2020-11-27 13:20] LABS: Hematocrit 42.3 % (33.0-51.0); Hemoglobin 13.9 g/dL (11.5-16.0); Mean Corpuscular HGB 29.2 pg (26.0-34.0); Mean Corpuscular HGB Conc 32.9 g/dL (31.5-36.5); Mean Corpuscular Volume 89 fL (80-100); Mean Platelet Volume 12.5 fL (9.1-12.4); Platelet Count 288 K/mm3 (150-400); RDW Coefficient Variation 12.7 % (11.7-14.2); RDW Standard Deviation 41.5 fL (35.1-46.3); Red Blood Cell Count 4.76 M/mm3 (3.80-5.20); White Blood Cell Count 18.26 K/mm3 (4.00-11.30)
--- NOTE | 2020-11-27 13:20 | NUR ---
Spiritual care visit conducted. Patient tells me about the difficulties of working through the COVID symptoms, about the mental/emotional toll the isolation takes and about the struggles her has had with the virus as well. Patient shares personal information. I provide therapeutic listening, emotional/spiritual support and prayer. Patient responds well and displays evidence of being encouraged in her jlail. I will continue to remain available to patient and family.
[2020-11-27 13:41] LABS: Alanine Aminotransfer (ALT/SGP 89 U/L (12-78); Albumin, Blood 3.3 g/dL (3.4-5.0); Albumin/Globulin Ratio 0.9 (0.8-1.8); Alk Phos 82 U/L (50-136); Anion Gap 7 mmol/L (6-16); Aspartate Aminotrans (AST/SGOT 37 U/L (12-37); Bilirubin, Total 0.8 mg/dL (0.1-1.0); Blood Urea Nitrogen 13 mg/dL (8-24); Bun/Creatinine Ratio 23.8 (12.0-20.0); CO2, Blood 24 mmol/L (21-32); Calcium, Blood 9.2 mg/dL (8.5-10.1); Chloride, Blood 106 mmol/L (98-108); Creatinine, Blood 0.55 mg/dL (0.40-1.00); Globulin, Blood 3.7 g/dL (2.2-4.0); Glomerular Filtration Rate >60 (60-); Glucose, Blood 107 mg/dL (70-99); Potassium, Blood 3.9 mmol/L (3.5-5.5); Sodium, Blood 137 mmol/L (136-145)
[2020-11-27 13:48] LABS: BAND PERCENT MAN 2 % (0-8); BASOPHILS PERCENT MAN 0 % (0-2); EOSINOPHILS PERCENT MAN 0 % (0-6); LYMPHOCYTES ABSOLUTE MAN 1.27 K/mm3 (0.84-5.20); LYMPHOCYTES PERCENT MAN 7 % (21-46); MONOCYTES ABSOLUTE MAN 0.73 K/mm3 (0.16-1.47); MONOCYTES PERCENT MAN 4 % (4-13); MYELOCYTE ABSOLUTE MAN 0.18 K/mm3 (0.00-0.00); MYELOCYTE PERCENT MAN 1 % (0-0); NEUTROPHILS ABSOLUTE MAN 16.06 K/mm3 (1.96-9.15); SEG NEUTROPHILS PERCENT MAN 86 % (41-73); TOTAL CELLS COUNTED 100
--- NOTE | 2020-11-27 18:18 | NUR ---
SHIFT SUMMARY NO ACUTE EVENTS THIS SHIFT. PATIENT HAS BEEN RESTING IN ROOM MOST OF THE DAY. PATIENT HAS HAD O2 SETTING ON AIRVO DECREASED AND HAS MAINTAINED MID 90S 02 SATS. CALL LIGHT IN REACH. BED IN LOCKED AND LOWEST POSITION. WILL CONTINUE TO MONITOR UNTIL END OF SHIFT.
--- NOTE | 2020-11-28 04:44 | NUR ---
SHIFT SUMMARY ADMITTED FOR COVID+. FULL CODE. PLAN IS FOR DC HOME WHEN STABLE. IV ANTIB ARE SCHEDULED. STILL REQUIRING O2 VIA AIRVO. SHE IS INDEP TO BSC. NO NEW CONCERNS THIS SHIFT
[2020-11-28 05:43] LABS: BASOPHILS ABSOLUTE AUTO 0.05 K/mm3 (0.00-0.23); BASOPHILS PERCENT AUTO 0 % (0-2); EOSINOPHILS PERCENT AUTO 0 % (0-6); Hematocrit 40.9 % (33.0-51.0); Hemoglobin 13.4 g/dL (11.5-16.0); IMMATURE GRAN PERCENT AUTO 6 % (0-1); LYMPHOCYTES ABSOLUTE AUTO 1.29 K/mm3 (0.84-5.20); LYMPHOCYTES PERCENT AUTO 11 % (21-46); MONOCYTES PERCENT AUTO 5 % (4-13); Mean Corpuscular HGB 29.1 pg (26.0-34.0); Mean Corpuscular HGB Conc 32.8 g/dL (31.5-36.5); Mean Corpuscular Volume 89 fL (80-100); Mean Platelet Volume 12.3 fL (9.1-12.4); NEUTROPHILS ABSOLUTE AUTO 9.67 K/mm3 (1.96-9.15); NEUTROPHILS PERCENT AUTO 79 % (41-73); Platelet Count 242 K/mm3 (150-400); RDW Coefficient Variation 12.8 % (11.7-14.2); RDW Standard Deviation 41.5 fL (35.1-46.3); White Blood Cell Count 12.31 K/mm3 (4.00-11.30)
[2020-11-28 06:22] LABS: BAND PERCENT MAN 1 % (0-8); BASOPHILS PERCENT MAN 0 % (0-2); EOSINOPHILS ABSOLUTE MAN 0.24 K/mm3 (0.00-0.68); EOSINOPHILS PERCENT MAN 2 % (0-6); LYMPHOCYTES PERCENT MAN 9 % (21-46); MONOCYTES ABSOLUTE MAN 0.73 K/mm3 (0.16-1.47); MONOCYTES PERCENT MAN 6 % (4-13); MYELOCYTE ABSOLUTE MAN 0.61 K/mm3 (0.00-0.00); MYELOCYTE PERCENT MAN 5 % (0-0); SEG NEUTROPHILS PERCENT MAN 77 % (41-73); TOTAL CELLS COUNTED 100
[2020-11-28 06:25] LABS: Alanine Aminotransfer (ALT/SGP 92 U/L (12-78); Albumin/Globulin Ratio 0.9 (0.8-1.8); Alk Phos 81 U/L (50-136); Anion Gap 5 mmol/L (6-16); Aspartate Aminotrans (AST/SGOT 31 U/L (12-37); Bilirubin, Total 0.5 mg/dL (0.1-1.0); Blood Urea Nitrogen 13 mg/dL (8-24); Bun/Creatinine Ratio 22.2 (12.0-20.0); CO2, Blood 26 mmol/L (21-32); Calcium, Blood 8.8 mg/dL (8.5-10.1); Chloride, Blood 107 mmol/L (98-108); Creatinine, Blood 0.59 mg/dL (0.40-1.00); Globulin, Blood 3.4 g/dL (2.2-4.0); Glomerular Filtration Rate >60 (60-); Glucose, Blood 165 mg/dL (70-99); Potassium, Blood 4.6 mmol/L (3.5-5.5); Sodium, Blood 138 mmol/L (136-145); Total Protein, Blood 6.4 g/dL (6.4-8.2)
--- NOTE | 2020-11-29 03:28 | NUR ---
SHIFT SUMMARY PT HAS BEEN TITRATED DOWN TO 4LPM VIA NASAL CANNULA. RT RECOMMENDS TO SCHEDULE WALKING EXERCISE TEST TOMORROW. PT IS EAGER TO GO HOME TO BE WITH SPOUSE, POSSIBLE HOME HEALTH UPON DISCHARGE. IV ACCESS IN RIGHT AC, FLUSHES WELL. PT STATES SHE IS LOOKING FORWARD TO EATING HER MOM'S HOMECOOKING AFTER DISCHARGE, APPEARS TO BE IMPROVING WELL. VSS, NO ACUTE CHANGES. SLEPT MOST OF THE SHIFT. CALL LIGHT WITHIN REACH, BED IN LOWEST POSITION.
[2020-11-29 05:11] LABS: BASOPHILS ABSOLUTE AUTO 0.04 K/mm3 (0.00-0.23); BASOPHILS PERCENT AUTO 0 % (0-2); EOSINOPHILS PERCENT AUTO 0 % (0-6); Hematocrit 38.9 % (33.0-51.0); Hemoglobin 12.8 g/dL (11.5-16.0); IMMATURE GRAN PERCENT AUTO 5 % (0-1); LYMPHOCYTES ABSOLUTE AUTO 1.14 K/mm3 (0.84-5.20); LYMPHOCYTES PERCENT AUTO 11 % (21-46); MONOCYTES ABSOLUTE AUTO 0.71 K/mm3 (0.16-1.47); MONOCYTES PERCENT AUTO 7 % (4-13); Mean Corpuscular HGB 29.3 pg (26.0-34.0); Mean Corpuscular HGB Conc 32.9 g/dL (31.5-36.5); Mean Corpuscular Volume 89 fL (80-100); Mean Platelet Volume 12.7 fL (9.1-12.4); NEUTROPHILS ABSOLUTE AUTO 7.78 K/mm3 (1.96-9.15); NEUTROPHILS PERCENT AUTO 77 % (41-73); Platelet Count 209 K/mm3 (150-400); RDW Coefficient Variation 12.6 % (11.7-14.2); RDW Standard Deviation 41.3 fL (35.1-46.3); Red Blood Cell Count 4.37 M/mm3 (3.80-5.20); White Blood Cell Count 10.17 K/mm3 (4.00-11.30)
[2020-11-29 05:40] LABS: Alanine Aminotransfer (ALT/SGP 87 U/L (12-78); Albumin/Globulin Ratio 0.9 (0.8-1.8); Alk Phos 92 U/L (50-136); Anion Gap 8 mmol/L (6-16); Aspartate Aminotrans (AST/SGOT 22 U/L (12-37); Bilirubin, Total 0.4 mg/dL (0.1-1.0); Blood Urea Nitrogen 16 mg/dL (8-24); CO2, Blood 26 mmol/L (21-32); Calcium, Blood 9.1 mg/dL (8.5-10.1); Chloride, Blood 106 mmol/L (98-108); Creatinine, Blood 0.62 mg/dL (0.40-1.00); Globulin, Blood 3.4 g/dL (2.2-4.0); Glomerular Filtration Rate >60 (60-); Glucose, Blood 212 mg/dL (70-99); Potassium, Blood 4.5 mmol/L (3.5-5.5); Sodium, Blood 140 mmol/L (136-145); Total Protein, Blood 6.4 g/dL (6.4-8.2)
--- NOTE | 2020-11-29 12:20 | NUR ---
I completed pt. Home O2 eval. pt. SpO2 was 86%-87% on RA; I did not complete the pt. on RA ambulatory because she was already desaturating. Pt was at rest 91%-92% on 3L NC; Pt. was 86% ambulatory on 3L NC. I increased the O2 to 6 L NC ambultory and pt. was 90%-91% on 6L NC.
[2020-11-29] MEDS ORDERED: DEXA2 PO (13:31)
[2020-11-29] MEDS ORDERED: FERROUS GLUCON324 M2 PO (13:32)
[2020-11-29] MEDS ORDERED: ASCO500 PO (13:35)
[2020-11-29] MEDS ORDERED: Acetaminophen325 M1 PO (13:35)
[2020-11-29] MEDS ORDERED: BENZ100A PO (13:36)
[2020-11-29] MEDS ORDERED: ROBITUSSIN DM PO (13:38)
[2020-11-29] MEDS ORDERED: MELATONIN5 M1 PO (13:39)
[2020-11-29] MEDS ORDERED: PANT40 PO (13:39)
[2020-11-29] MEDS ORDERED: METAMUCIL POWD575 GM PO (13:40)
[2020-11-29] MEDS ORDERED: VISBIOME 112.51 EACH PO (13:40)
[2020-11-29] MEDS ORDERED: VITAMIN D5000 UNIT PO (13:41)
[2020-11-29] MEDS ORDERED: ZINC220 PO (13:41)
--- NOTE | 2020-11-29 14:54 | NUR ---
Spiritual Care Visit provided. Pt and I had a nice conversation about her work and plans once she is discharged and able to return to work. She is very eager to be going home and was appreciative of the visit.
--- NOTE | 2020-11-29 18:21 | NUR ---
Pt was alert and oriented x3 and was in stable condition at the time of discharge. vital signs are stable. WAS discharged with home oxygen use. Discharge education was given regarding medications usage and adverse effects, verablized and demonstrated understanding. IV line was dc. pleasant and cooperative.
== END 2020-11-29 16:20 | disposition home health service (06) | DRG 177 ==
LOC: ER 19:53 → MEDS 23:06
PROVIDERS: Family Medicine; Internal Medicine; Physician Assistant; ADMIT Hospitalist
PROC: 8E0ZXY6 Isolation (ICD-10-PCS; principal; 2020-11-16)
PROC: 5A0955Z Assistance with Respiratory Ventilation, Greater than 96 Consecutive Hours (ICD-10-PCS; 2020-11-16)
PROC: 3E0333Z Introduction of Anti-inflammatory into Peripheral Vein, Percutaneous Approach (ICD-10-PCS; 2020-11-19)
PROC: XW033E5 Introduction of Remdesivir Anti-infective into Peripheral Vein, Percutaneous Approach, New Technology Group 5 (ICD-10-PCS; 2020-11-19)
DX: U07.1 COVID-19 (principal); J96.01 Acute respiratory failure with hypoxia; J12.82 Pneumonia due to coronavirus disease 2019; J21.9 Acute bronchiolitis, unspecified; Z68.42 Body mass index [BMI] 45.0-49.9, adult; E03.9 Hypothyroidism, unspecified; R79.89 Other specified abnormal findings of blood chemistry; F41.9 Anxiety disorder, unspecified; E66.01 Morbid (severe) obesity due to excess calories; K21.9 Gastro-esophageal reflux disease without esophagitis; E07.9 Disorder of thyroid, unspecified; M79.7 Fibromyalgia; Z98.890 Other specified postprocedural states; Z88.6 Allergy status to analgesic agent; Z79.899 Other long term (current) drug therapy; E28.2 Polycystic ovarian syndrome; K75.81 Nonalcoholic steatohepatitis (NASH); G47.00 Insomnia, unspecified
CPT/HCPCS: 36415; 71045; 80048; 80053; 81003; 82947; 83036; 83735; 83880; 84100; 84145; 84443; 85025; 85610; 86140; 87040; 94640; 94762; 96374; 97110; 97161; 97530; 99285-25; A9270; C9113; J0456; J0696; J1100; J1650; J2405; J7030; J7050

== ENCOUNTER → 2020-11-16 | Outpatient (CLI) | payer BC | END | disposition home or self-care (01) | LOC: LAB SHORT 13:14 → LAB 13:14 | DX: J18.9 Pneumonia, unspecified organism (principal) | CPT/HCPCS: 85379 ==

== ENCOUNTER → 2021-04-17 | Outpatient (CLI) | payer BC ==
[~2021-04-17] MED LIST changes: +ASCO500 PO; -AUROVELA; +AUROVELA PO; +Acetaminophen325 M1 PO; +BENZ100A PO; +DEXA2 PO; -EUTHYROX25 MC1; +EUTHYROX25 MC1 PO; +FERROUS GLUCON324 M2 PO; +MELATONIN5 M1 PO; +METAMUCIL POWD575 GM PO; +PANT40 PO; +ROBITUSSIN DM PO; -TRAZ50; +TRAZ50 PO; +VISBIOME 112.51 EACH PO; +VITAMIN D5000 UNIT PO; -Ventolin/Prove6.7 GM; +Ventolin/Prove6.7 GM INH; +ZINC220 PO
[2021-04-19 11:47] LABS: CORONAVIRUS (COVID19) CSH-NRL Negative (Negative)
== END | disposition home or self-care (01) ==
LOC: LAB SHORT 18:13 → LAB 18:13
PROVIDERS: Family Medicine
DX: Z20.822 Contact with and (suspected) exposure to COVID-19 (principal)
CPT/HCPCS: U0003